=== PATIENT | male | born 1970 | race Caucasian/White ===

== ENCOUNTER 2019-12-08 22:47 | Emergency (ER) | payer SELFPAY ==
[~2019-12-08] VITALS: Ht 165.1 cm; Wt 79.4 kg
[2019-12-08 23:04] VITALS: BP 149/80
--- NOTE | 2019-12-09 02:10 | NUR ---
PT AMBULATED TO BED #1
[2019-12-09 02:15] VITALS: BP 138/92
--- NOTE | 2019-12-09 02:15 | NUR ---
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 PT AAO X4. PER PT HE WAS WORKING ON WEDNESDAY WITH METAL AT WORK AND DEBRIS FELL IN HIS EYE. PT STATES HE IS STILL ABLE TO SEE BUT HAS "BLOODY TEARS." PER PT HE TRIED TO RINSE HIS EYE OUT WITH WATER. EYE IS NOTED WITH REDNESS AND MILD SWELLING OF THE EYE LID. AFEBRILE. DENIES COUGH. DENIES N/V/D. RESPIRATIONS ARE EVEN AND UNLABORED. SKIN IS WARM AND DRY TO TOUCH. DAUGHTER AT BEDSIDE. PT RESTING IN BED SITTING UPRIGHT. BED LOCKED IN LOWEST POSITION. MEDHX: REMOVAL OF GALLBLADDER X 4 YEARS AGO. ALLERGIES: NONE.
--- NOTE | 2019-12-09 03:15 | NUR ---
PATIENT LEFT WITHOUT BEING SEEN BY DR. HUNTLEY. NO FURTHER CARE PROVIDED FOR PATIENT.
--- NOTE | 2019-12-09 03:15 | NUR ---
PT LEFT WITHOUT BEING SEEN.
== END 2019-12-09 03:15 | disposition left against medical advice (07) ==
LOC: MED 22:47
DX: L29.9 Pruritus, unspecified (principal); Z53.21 Procedure and treatment not carried out due to patient leaving prior to being seen by health care provider